=== PATIENT | male | born 1955 | race Asian ===

== ENCOUNTER 2020-10-19 08:14 | Emergency (ER) | payer OTHER ==
[2020-10-19] MEDS ORDERED: MEDROL 4MG DOSEP4 MG PO (10:50)
== END 2020-10-19 11:04 | disposition home or self-care (01) ==
LOC: FER 08:14
DX: M54.42 Lumbago with sciatica, left side (principal); M47.816 Spondylosis without myelopathy or radiculopathy, lumbar region; I10 Essential (primary) hypertension; F17.210 Nicotine dependence, cigarettes, uncomplicated; Z87.81 Personal history of (healed) traumatic fracture
CPT/HCPCS: 72110; 73502